=== PATIENT | male | born 1990 | race Two or more races ===

== ENCOUNTER 2022-04-22 19:29 | Emergency (ER) | payer BC, OTHER ==
[~2022-04-22] VITALS: Ht 180.3 cm; Wt 100.0 kg
[2022-04-23 00:15] VITALS: BP 122/74
== END 2022-04-23 00:19 | disposition home or self-care (01) ==
LOC: ER 19:29
DX: R20.0 Anesthesia of skin (principal)
CPT/HCPCS: 72125; 93005